=== PATIENT | female | born 1995 | race Caucasian/White ===

== ENCOUNTER → 2017-03-11 | Day surgery (SDC) | payer MEDICAID ==
[~2017-03-11] VITALS: Ht 172.7 cm; Wt 114.7 kg
[2017-03-11] VITALS (11 sets, daily range): BP systolic 113–137; BP diastolic 59–76; PULSE 79–107; RESP 13–17; O2SAT 92–99
[~2017-03-11] MED LIST: Bupivacaine-MPF 0.5% 30 mL Inj INFILTRATE ONE; Dexamethasone 4 mg/mL Inj IVPUSH PRN; Dexamethasone 4 mg/mL Inj ONE; EPHEDrine Sulfate 50 mg/mL Inj IVPUSH PRN; HYDR-4003 PO; HYDROmorphone 1 mg/mL Inj IVPUSH PRN; Lactated Ringer's 1,000 ML IV ONE; Lactated Ringer's 1,000 ML IV SCH; Lactated Ringer's 500 ML IV PRN; Lidocaine 1% 50 mL Inj INFILTRATE ONE; MetoCLOpramide 5 mg/mL 2 mL Inj IVPUSH PRN; MetoCLOpramide 5 mg/mL 2 mL Inj ONE; NORE0.3520 PO; OXYC5TAB72 PO; Ondansetron 2 mg/mL 2 mL Inj IVPUSH PRN; Ondansetron 2 mg/mL 2 mL Inj ONE; POLY17PO6 PO; Phenylephrine 10,000 mCg/mL Inj IVPUSH PRN; Polyethylene Glycol (PEG) 17 Gm Powder PO SCH; Propofol 10,000 mCg/mL 20 mL Inj ONE; Rocuronium 10 mg/mL 5 mL Inj ONE; fentaNYL-PF 50 mCg/mL 2 mL Inj IVPUSH PRN; fentaNYL-PF 50 mCg/mL 2 mL Inj ONE; levoFLOXacin Inj 500 MG in IV Premix 1 EACH IV SCH
[2017-03-11] MEDS: Lactated Ringer's 1,000 ML IV SCH ×2 (11:40→12:40)
--- NOTE | 2017-03-11 13:01 | PCM.HPANE ---
Patient Data Surgeon Admitting Provider: Attending Provider:Sasha Butts MD Primary Care Physician:Sridhar Celis MD Other Provider:[facility] Reason for Visit Cholelithiasis Ht/WT & BMI Height (Feet): 5 Height (Inches): 8 Weight (Kilograms): 114.7 Body Mass Index 38.00 Allergies Coded Allergies: No Known Allergies (Unverified , 06/23/16) Past Anesthesia History Anesthesia History: Denies:: Abnormal Airway, Anesthesia Reactions, Difficult Intubation, Fam Anesthesia Reaction, Fam Malignant Hypertherm, Malignant Hyperthermia Diabetes History Hx Diabetes?: No MRSA MRSA: No Medications Active Scripts oxyCODONE 5 Mg Tablet5 Mg PO Q12 PRN For Moderate Pain #14 TABLET Prov:Sasha Butts MD 03/11/17 Polyethylene Glycol 3350 (Miralax)17 Gm Powd.pack17 Gm PO DAILY #30 DOSE Prov:Sasha Butts MD 03/11/17 Hydrocodone-Acetaminophen 5-325 mg 1 Each Tablet1-2 Tablet PO Q4H PRN For Pain # 8 TABLET Ref 0 Prov:Sridhar Celis MD 06/27/16 Reported Medications Norethindrone 0.35 Mg Tablet0.35 Mg PO 03/06/17 Discontinued Scripts Ibuprofen 600 Mg [id number] Mg PO QID PRN For Pain #20 TABLET Ref 4 Prov:Sridhar Celis MD 06/27/16 Docusate Sodium (Colace)100 Mg [id number] Mg PO BID PRN For Constipation #10 CAPSULE Ref 3 Prov:Sridhar Celis MD 06/27/16 History History of ENT Problems?: No HEENT History: Denies:: Abnormal Airway Cataracts Difficult Intubation Dysphagia Glaucoma Hearing Problem Sinus Problem TMJ Denture Type: None Teeth Condition: Within Normal Limits Hx of Heart Problems?: No Cardiovascular History: Denies:: AICD Abdominal Aortic Aneurism Atrial Fibrillation Cardiac Surgery Chest Pain Congestive Heart Failure Coronary Artery Disease Edema Heart Murmur Hypertension Irregular Heartbeat Pacemaker Peripheral Vascular Rheumatic Fever Thrombophlebitis Valvular Heart Disease Hx of Respiratory Problem?: No Respiratory History: Denies:: Asthma COPD Chest Surgery Cough Dyspnea Emphysema Hemoptysis Oxygen Administration Pneumonia Pulmonary Embolism Tuberculosis Use of C-PAP Machine Use of Inhalers / NEBS Hx Neurologic Problems?: No Hx of GI Problems?: No Hx of Problems?: No HX of Peritoneal Dialysis: No Female Hx: Denies:: Currently Endometriosis Pelvic Inflammatory Problems with Breasts? Skin History: Denies:: History Skin Disorders? Pressure Ulcers Hx Musculoskeletal Problems?: No Hx of Psycho/Social Problems?: No Hx Surgeries?: No Hx Any Other Health Problems?: Yes Other History: Positive for:: Hospitalization (May 2016 Child ) Denies:: Cancer Endocrine Disease Thyroid Disease History Blood Transfusions: Positive for:: Accept Blood Products? Denies:: Blood Transfusions Hx Diabetes: No Hx Alcohol Use: NoHx Substance Use: NoHave You Smoked inLast 12 mo: No Stop/Bang S-Snoring: Do You Snore Loudly: Yes T-Tired: feel tired, fatigued: No O-Obsered: Observed not breath: No P-Blood Pressure: treated: No B- Body Mass Index > 35 kg/m2: No A- Age over 50: No N- Neck Large Circumference: No G- Gender Male: No NAEL Total Score: 1 Risk Assessment Category Category 1A: Patient has history of documented sleep apnea, and HAS NOT received any narcotic, sedative or anesthesia administration during this stay. Category 1B: Patient has history of documented sleep apnea, and HAS received any narcotic , sedative or anesthesia administration during this stay Category 2: Patient has SUSPECTED Obstructive Sleep Apnea, and HAS received any narcotic , sedative or anesthesia administration during this stay. Category 3: Patient has SUSPECTED Obstructive Sleep Apnea and HAS NOT received narcotic, sedative or anesthesia administration during this stay. Category 4: Outpatient in Procedural Areas with known sleep apnea or who screen positive for High Risk via the STOP/BANG questionnaire. Exam Exam General Appearance: Alert, Oriented X3, Cooperative, No Acute Distress HEENT/AIRWAY: MP 2 Lungs: Clear to Auscultation Heart: Exam Unremarkable Plan Impression Patient chart reviewed, patient interviewed and anesthestic plan with risks, benefits, and alternatives discussed, and informed consent obtained. ASA Physical Status: ASA3 Severe Disease Anesthetic Plan: GA Bene/Risks/Altern/Consents: Yes HP Complete Prior to Induction: Yes Tito Rangel MD Mar 11, 2017 08:02
--- NOTE | 2017-03-11 15:17 | PCM.SURGPO ---
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 Surgical Specimen Removed: Yes Specimen sent to Pathology: Yes Surgical Specimen description: Gallbladder with stones Anesthetic Administered: GA Grafts, Implants: None Output, Estimated Blood Loss: 5 Blood Admin during surgery: No Attending Statement Writing Tutor listed was medically necessary for the successful completion of the case Sasha Butts MD Mar 11, 2017 15:17
--- NOTE | 2017-03-11 15:17 | PCM.DISURG ---
Surgical Discharge Instruction Date of Service Mar 11, 2017 Dates of Hospitalization Date of Hospital Admission Providers Admitting Physician: Primary Care Physician: Sridhar Celis MD Attending Physician: Sasha Butts MD Diet Discharge Diet: No restrictions Activity Discharge Activity-General: Activity as pain allows, No lifting >15 pounds for 2 weeks, No driving while taking narcotic Dressing and Incisional Care Dressing Care: Remove outer dressing after 24 hrs Hygiene: May shower after (24 hours), DO NOT soak incision under water, NO bathtub, hot tub or whirlpool Additional Instructions Discharge Instructions Follow up in general surgery clinic in 2 weeks. Call at any time with questions or concerns. Follow Up Plan Call your provider for: Fever, Chills, Increasing abdominal pain, Nausea, Vomiting, Wound redness, Increasing wound pain, Discharge @ incision, pus discharge Pan Brown MD Mar 11, 2017 15:17
--- NOTE | 2017-03-11 15:29 | PCM.ANEP1 ---
Post Anesthesia PACU Phase 1 Assessment Vital Signs Vital Signs Date Time Temp Pulse Resp B/P Pulse Ox O2 Delivery O2 Flow Rate FiO2 03/11/17 11:41 36.0 79 16 137/76 99 Room Air Anesthetic Administered: GA Level of Alertness: Sleepy, easy to arouse Pain: No Nausea or Vomiting: No CV Function & Hydration Stable: Yes Airway Device: Oxygen Delivery: Room Air Lungs: Clear to Auscultation Dermatome Level: Full Sensation PACU Phase 2 Assessment Patient Instructions Provided: N/A Tito Rangel MD Mar 11, 2017 15:29
[2017-03-11] MEDS: oxyCODONE-Acetamin 5-325 mg Tablet PO PRN ×2 (15:59→17:30)
--- NOTE | 2017-03-11 16:29 | OP ---
[address] [address] OPERATIVE REPORT PATIENT: MAKAYLA LÓPEZ : 1995 MR#: [id number] ADMIT: 03/11/2017 JOB ID: [id number] DATE OF SURGERY: 03/11/2017 SURGEON: Sasha Butts MD ASSISTANTS: Pan Brown MD and Pan Schneider PA-C PREOPERATIVE DIAGNOSIS(ES): Cholelithiasis. POSTOPERATIVE DIAGNOSIS(ES): Choledocholithiasis. PROCEDURE PERFORMED: Laparoscopic cholecystectomy with intraoperative cholangiogram. COMPLICATIONS: None. CONDITION: Patient is stable. INDICATIONS: The patient is a 22-year-old lady who has had episodic right-sided abdominal pain since last year when she was . The pain did not get better even after delivery last winter and she was evaluated by Dr. Celis in January and under underwent ultrasound and blood work showing multiple gallstones with no obvious biliary ductal dilatation. After discussing the risks, benefits, and alternatives, she is here today for laparoscopic cholecystectomy with cholangiogram. PROCEDURE DETAILS: She was placed in supine position, underwent smooth induction of general anesthesia, abdomen was prepped and draped in the usual sterile fashion. Surgical time-out was undertaken using safety checklist, and all were in agreement. I began by making a supraumbilical curvilinear incision and entered the abdomen using combination of Alfreda technique and Optiview trocars. We then upsized to a 12 mm port and then placed three 5 mm ports; one in the epigastrium and two in the right upper quadrant. We then retracted the gallbladder cephalad and to the right and then dissected the triangle of Calot anteriorly and posteriorly. We were able to identify the cystic artery and divide it between clips, and as we dissected the cystic duct, we noticed the caliber of the duct to be a significantly large, prompting us to trace it down towards the common bile duct until we felt safe. At that point, I was able to clip the cystic duct on the specimen side, make a ductotomy and was able to extract multiple stones from the cystic duct. After flushing the duct as clean as we could, we obtained a cholangiogram which showed normal anatomy but did show multiple innumerable luminal filling defects within the common bile duct with minimal flow of contrast into the duodenum. Then, we gave her a dose of IV glucagon and intraductal lidocaine to flush the duct through and we again demonstrated repair on repeat cholangiogram that the defects have been cleared with good flow of contrast into the duodenum. After that we clipped the cystic duct doubly on the patient's side, divided it and dissected the rest of the gallbladder the rest of the way away from the liver with good hemostasis. In the process of dissection, we did enter into the gallbladder but suctioned and irrigated all fluid and bile from the right upper quadrant and did not spill any stones. After that, the gallbladder was put in an EndoCatch bag and removed through the umbilical port site. The pneumoperitoneum was evacuated and the umbilical port site was closed with [id number] 0-Vicryl suture. The skin was reapproximated with 4-0 Monocryl. Steri-Strips and sterile dressing were applied. Patient was recovered from anesthesia and was taken to the recovery room in stable condition.
--- NOTE | 2017-03-11 17:21 | DRSVH ---
PROCEDURE: X-RAY OPERATIVE CHOLANGIOGRAM ([id number]) INDICATIONS: CHOLELITHIASIS COMPARISON: None. FINDINGS: Biliary ducts: The surgeon injected contrast into the biliary ducts after cannulation of the cystic duct stump. Visualized intra- and extrahepatic bile ducts are normal in caliber, without strictures. No definite persistent intraluminal filling defects to suggest retained ductal stones or sludge. T here are transient rounded filling defects within the common bile duct compatible with gas bubbles. No evidence for iatrogenic ductal injury. Duodenum: Contrast flows promptly through the sphincter of Oddi into the duodenum, which appears nor mal in caliber. IMPRESSION: 1. No definite retained common duct stones. 2. Small transient filling defects demonstrated in the common duct compatible with gas bubbles. Dictated by: Best Fisher M.D. on 03/11/2017 at 17:18 Approved by: Best Fisher M.D. on 03/11/2017 at 17:19
--- NOTE | 2017-03-13 14:34 | PATH ---
SURGICAL PATHOLOGY Attending Physician:Sasha Butts MD CASE STATUS: Signed Out PATIENT NAME: MAKAYLA LÓPEZ PID: [id number] : 1995 DATE COLLECTED:03/11/2017 23:07 SPECIMEN: Gallbladder CLINICAL HISTORY: 1). GALLBLADDER FINAL DIAGNOSIS: Gallbladder, Laparoscopic Cholecystectomy: Chronic cholecystitis, cholesterolosis, and cholelithiasis. ICD10: K81.1 GROSS DESCRIPTION: The specimen is received in one formalin filled container labeled with the patient's name, sublabeled "gallbladder" and consists of a slightly opened 8.5 x 2.0 x 2.0 CM gallbladder. The serosa is smooth. The wall is 0.2-0.4 CM in thickness. The mucosa is a yellow to green santoyo in color. The lumen contains approximately 15-20 yellow santoyo fragments of calculi which range in size from 0.1-1.2 CM in greatest dimension. 5 residential sales representative sections are submitted in one cassette. 03/12/2017DC ICD-9 CODES: CPT CODES: 1: 84385 Electronically Signed Out Ivonne Alegre MD [facility] [address], [place] [address] Technical component performed at [facility], [address] [place] [address] Ave[address], [place], [address]
== END | disposition home or self-care (01) ==
LOC: SAS 11:12
PROVIDERS: ATTEND Student in an Organized Health Care Education/Training Program
DX: K80.10 Calculus of gallbladder with chronic cholecystitis without obstruction (principal); Z79.899 Other long term (current) drug therapy
CPT/HCPCS: 47563; 74300; C1713; J1100; J1885; J2250; J2405; J2765; J3010; J7120; Q9967